=== PATIENT | male | born 1995 | race Caucasian/White ===

== ENCOUNTER 2019-04-19 19:30 | Emergency (ER) | payer MEDICAID ==
[2019-04-19] MEDS ORDERED: Acetaminophen/HYDROcodone 325-10 MG Tab PO ONE (19:31)
[2019-04-19] MEDS ORDERED: Sodium Chloride 0.9% 1,000 ML IV ONE (19:36)
[2019-04-19] MEDS ORDERED: Ondansetron 4 MG/2 ML SDV IV ONE (19:36)
[2019-04-19] MEDS ORDERED: Ketorolac 30 MG/ML SDV IVPUSH ONE (19:36)
--- NOTE | 2019-04-19 19:39 | EDM.PDOC ---
ED HPI GENERAL MEDICAL PROBLEM - General Chief Complaint: Flank Pain Stated Complaint: KIDNEY STONE? 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 nausea and pain. things got worse yesterday after playing basketball and left back started hurting alot. also been having urine dribbling past month too. but able to urinate fine. Left Flank Pain Score (Numeric/FACES): 6 - Related Data Allergies Allergy/AdvReac Type Severity Reaction Status Date / Time No Known Allergies Allergy Verified 04/19/19 19:46 Home Meds: Home Meds . [No Known Home Meds] 04/19/19 [History] ED ROS GENERAL - Review of Systems Review Of Systems: ROS reveals no pertinent complaints other than HPI. ED EXAM, RENAL/ - Physical Exam Exam: See Below Exam Limited By: No Limitations General Appearance: Alert, WD/WN, Mild Distress, Other (discomfort) Ears: Hearing Grossly Normal Throat/Mouth: Normal Voice, No Airway Compromise Head: Atraumatic Neck: Non-Tender, Full Range of Motion Respiratory/Chest: No Respiratory Distress Cardiovascular: Regular Rate, Rhythm GI/Abdominal: Soft, Non-Tender Back Exam: CVA Tenderness (L) Psychiatric: Flat Affect Skin Exam: Warm, Dry, Normal Color Lymphatic: No Adenopathy Course - Vital Signs Last Recorded V/S: Last Vital Signs Temp 36.6 C 04/19/19 21:15 Pulse 77 04/19/19 21:15 Resp 17 04/19/19 21:15 BP 122/70 04/19/19 21:15 Pulse Ox 98 04/19/19 21:15 - Orders/Labs/Meds Labs: Laboratory Tests 04/19/19 04/19/19 04/19/19 Range/Units 19:40 19:40 20:10 WBC 8.9 (5.0-10.0) 10^3/uL RBC 5.07 (4.6-6.2) 10^6/uL Hgb 15.1 (14.0-18.0) g/dL Hct 42.6 (40.0-54.0) % MCV 84.0 (80-100) fL MCH 29.8 (27.0-34.0) pg MCHC 35.4 H (33.0-35.0) g/dL Plt Count 271 (150-450) 10^3/uL Neut % (Auto) 51.7 (42.2-75.2) % Lymph % (Auto) 39.7 (20.5-50.1) % [place] % (Auto) 6.6 (2-8) % Eos % (Auto) 1.0 (1.0-3.0) % Baso % (Auto) 1.0 (0.0-1.0) % Sodium 139 (135-145) mmol/L Potassium 3.6 (3.6-5.0) mmol/L Chloride 106 (101-111) mmol/L Carbon Dioxide 23.0 (21.0-31.0) mmol/L Anion Gap 13.6 BUN 14 (7-18) mg/dL Creatinine 1.1 (0.6-1.3) mg/dL Est Cr Clr Drug Dosing 105.82 mL/min Estimated GFR (MDRD) > 60 BUN/Creatinine Ratio 12.72 Glucose 88 (74-105) mg/dL Calcium 9.1 (8.4-10.2) mg/dl Total Bilirubin 0.9 (0.2-1.0) mg/dL AST 21 (10-42) IU/L ALT 15 (10-60) IU/L Alkaline Phosphatase 57 (42-121) IU/L Total Protein 7.1 (6.7-8.2) g/dl Albumin 4.4 (3.2-5.5) g/dl Globulin 2.7 Albumin/Globulin Ratio 1.63 Urine Color Yellow (YELLOW) Urine Appearance Clear (CLEAR) Urine pH 7.0 (5.0-9.0) Ur Specific [place] 1.020 (1.005-1.030) Urine Protein Negative (NEGATIVE) Urine Glucose (UA) Negative (NEGATIVE) Urine Ketones Negative (NEGATIVE) Urine Occult Blood Negative (NEGATIVE) Urine Nitrite Negative (NEGATIVE) Urine Bilirubin Negative (NEGATIVE) Urine Urobilinogen 0.2 (0.2-1.0) mg/dL Ur Leukocyte Esterase Negative (NEGATIVE) Meds: Medications Discontinued Medications Generic Name Dose Route Start Last Admin Trade Name Freq PRN Reason Stop Dose Admin Sodium Chloride 1,000 mls @ 999 mls/hr 04/19/19 19:36 04/19/19 19:44 Normal Saline IV 04/19/19 20:36 999 mls/hr .BOLUS ONE Administration Ketorolac Tromethamine 30 mg 04/19/19 19:36 04/19/19 19:45 Toradol IVPUSH 04/19/19 19:37 30 mg ONETIME ONE Administration Morphine Sulfate 2 mg 04/19/19 21:07 04/19/19 21:13 Morphine IVPUSH 04/19/19 21:08 2 mg ONETIME ONE Administration Ondansetron HCl 4 mg 04/19/19 19:36 04/19/19 19:45 Zofran IV 04/19/19 19:37 4 mg ONETIME ONE Administration - Re-Assessments/Exams Free Text/Narrative Re-Assessment/Exam: 04/19/19 21:35 case disucssed with Urologist who rec' f/u based upon normal labs. results discussed with pt and importance of f/u to preserve his kidney. Departure - Departure Time of Disposition: 21:38 Disposition: Home, Self-Care 01 Condition: Fair Clinical Impression: Hydronephrosis concurrent with and due to ureteral stricture - Discharge Information Forms: ED Department Discharge Additional Instructions: 1) rest and avoid vigorous activities next 48 hours 2) recheck if develops fever and unable to urinate 3) must call Sunday [phone] Urology clinic for appointment to see Dr Iglesias , ask for Marisa his nurse. rx given; vicodin 5/325mg tid prn x 6
[2019-04-19 20:04] LABS: ANION GAP 13.6; CHLORIDE,CL 106 mmol/L (101-111); SODIUM,NA 139 mmol/L (135-145)
[2019-04-19] MEDS ORDERED: Morphine 2 MG/ML Syringe IVPUSH ONE (21:07)
[2019-04-19] MEDS ORDERED: Acetaminophen/HYDROcodone 325-10 MG Tab ONE (21:38)
== END 2019-04-19 21:44 | disposition home or self-care (01) ==
LOC: EDBD → DL.ED 19:30
DX: N13.1 Hydronephrosis with ureteral stricture, not elsewhere classified (principal)
CPT/HCPCS: 36415; 74176; 80053; 81003; 85025; 96361; 96374; 96375; 99284; A9270; J1885; J2270; J2405; J7030